=== PATIENT | male | born 1950 | race Caucasian/White ===

== ENCOUNTER 2020-03-02 10:48 | Emergency (ER) | payer OTHER, MEDICARE, SELFPAY ==
[2020-03-02 11:03] VITALS: BP 146/82; PULSE 87; TEMP 36.2; O2SAT 96; BMI 16.4
[2020-03-02 12:14] LABS: Add Urine Microscopic? NO
[2020-03-02 12:38] LABS: Glucose Urine UA Norm (Normal); Protein Urine Neg (Negative); Specific Gravity, Urine 1.015 (1.005-1.030); Urine Appearance Clear (CLEAR); Urine Color Dark Yellow (Yellow); pH Urine 7 (5-7)
[2020-03-02 12:39] LABS: Bilirubin Urine 1+ (Negative); Blood Urine Neg (Negative); Ketones Urine 3+ (Negative); Leukocyte Esterase Urine Negative (Negative); Nitrate Urine Negative (Negative); Urobilinogen Urine 4 mg/dL (Negative)
[2020-03-02 13:08] LABS: INR 0.85 (0.8-1.2)
[2020-03-02 13:10] LABS: Partial Thromboplastin Time 28.4 SECONDS (23.9-36.7)
[2020-03-02 13:16] LABS: Alanine Aminotransferase 16 U/L (0-41); Albumin Level 4.4 g/dL (3.5-5.2); Alkaline Phosphatase 53 IU/L (40-130); Anion Gap 16.3 (5-19); Aspartate Amino Transferase 26 U/L (0-40); Blood Urea Nitrogen 11 mg/dL (8-23); Calcium 9.5 mg/dL (8.5-10.5); Carbon Dioxide 27 mmol/L (22-29); Chloride 96 mmol/L (98-107); Globulin 3.1 g/dL (1.3-4.6); Glomerular Filtration Rate 299.1 mL/min (90-130); Glucose 96 mg/dL (65-115); Osmolality Calculated 276 mOsm/kg (285-295); Potassium 4.3 mmol/L (3.5-5.1); Sodium 135 mmol/L (136-145); Total Bilirubin 1.8 mg/dL (0.15-1.2); Total Protein 7.5 g/dL (6.6-8.7)
--- NOTE | 2020-03-02 14:16 | CT_ITS ---
WS: [id number] CT scan of the abdomen and pelvis with IV contrast. Additional two-dimensional coronal and sagittal reconstruction was performed. 03/02/2020 Clinical Data: abd pain Comparison: None. DLP: 165.[address] scans at [facility] use at least one of these dose optimization techniques: automat ed exposure control; mA and/or kV adjustment per patient size (includes targeted exams where dose is matched to clinical indication); or iterative reconstruction. Findings: The lower lungs show no nodules, masses or effusions. The liver, spleen and adrenal glands are normal. The gallbladder is absent with clips in the gallblad sasha site from a cholecystectomy. The pancreas is atrophic with no evidence of pancreatitis or pancrea tic mass. The kidneys show equal bilateral contrast excretion with no cyst or masses. The abdominal aorta is normal in size with minimal calcification in the wall.. No appendicitis or diverticulitis is seen. There is no dilatation of the small bowel, but there is fl uid in the small bowel lumen which can be seen with gastroenteritis. There are numerous sigmoid diver ticula. No abscess, adenopathy, ascites, mass, obstruction or free air is seen. The bladder is unrema rkable. The prostate is enlarged. No inguinal hernia is seen. The bones of the lower thorax, lumbar spine, pelvis, and hips show only moderate degenerative changes of the lumbar vertebral bodies. There are anterior upper abdominal midline surgical sutures. CT/CT abdomen pelvis w con* [id number] Impression: 1. Fluid in the small bowel without dilatation which can be seen with gastroent eritis. 2. Cholecystectomy. 3. Negative for acute pelvic abnormalities.
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
[2020-03-02 15:07] LABS: Basophils % 0.4 %; Eosinophils # 0.1 10^3/uL (0.0-0.8); Eosinophils % 0.9 %; Hematocrit 46.3 % (42.0-52.0); Hemoglobin 15.3 g/dL (11.7-16.6); Lymphocytes # 1.9 10^3/uL (0.8-4.8); Lymphocytes % 16.8 %; Mean Corpuscular Hemoglobin 33.3 pg (28.0-34.0); Mean Corpuscular Volume 100.7 fL (80-94); Mean Platelet Volume 11.2 fL (7.4-10.4); Monocytes # 1.2 10^3/uL (0.2-0.9); Monocytes % 10.5 %; Neutrophils # 8.12 10^3/uL (1.8-7.7); Neutrophils % 71.1 %; Nucleated Red Blood Cells % 0 %; Platelet Count 216 10^3/cmm (130-400); Red Cell Distribution Width 11.8 % (12.1-15.1); White Blood Count 11.4 10^3/uL (4.0-10.0)
[2020-03-02 15:56] VITALS: BP 138/76; PULSE 73; RESP 14; O2SAT 97
--- NOTE | 2020-03-02 16:14 | PC.NURSE ---
PT TO CT BY STRETCHER WITH TECH
[2020-03-02] MEDS: iohexol 300 mg/mL 100 mL Btl IV (16:21)
[2020-03-02 17:27] VITALS: BP 133/79; PULSE 85; RESP 20; TEMP 36.4; O2SAT 96
== END 2020-03-02 17:27 | disposition home or self-care (01) ==
PROVIDERS: Emergency Provider Family Medicine
DX: K92.1 Melena (principal)
CPT/HCPCS: 12345; 74177; 80053; 81003; 85025; 85610; 85730; 99282; 99283; Q9967

== ENCOUNTER 2023-01-30 16:13 | Inpatient (IN) | payer OTHER, SELFPAY ==
--- NOTE | 2023-01-30 16:15 | XRR_ITS ---
PROCEDURE INFORMATION: Exam: XR Right Hip Exam date and time: 01/30/2023 4:21 PM Age: 72 years old Clinical indication: Injury or trauma; Fall; Blunt trauma (contusions or hematomas); Right; Hip TECHNIQUE: Imaging protocol: Radiologic exam of the right hip. Views: 1 view hip with pelvis when performed. COMPARISON: CT abdomen pelvis w con* [id number] 03/02/2020 4:13 PM FINDINGS: Bones/joints: Right subcapital proximal femur fracture deformity. Soft tissues: Unremarkable. XR/XR hip RT 2-3V wo/w pel* [id number] IMPRESSION: Right subcapital proximal femur fracture deformity.
[2023-01-30 16:21] VITALS: BP 134/83; PULSE 105; RESP 20; O2SAT 94
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
--- NOTE | 2023-01-30 16:34 | XRR_ITS ---
PROCEDURE INFORMATION: Exam: XR Chest Exam date and time: 01/30/2023 4:47 PM Age: 72 years old Clinical indication: Injury or trauma; Fall TECHNIQUE: Imaging protocol: Radiologic exam of the chest. Views: 1 view. COMPARISON: CT abdomen pelvis w con* [id number] 03/02/2020 4:13 PM FINDINGS: Tubes, catheters and devices: Tracheostomy cannula noted, with distal tip 4 cm above the rahat. Lungs: The lungs are hyperinflated, consistent with COPD. No consolidative pulmonary infiltrates are noted. Pleural spaces: No pleural effusion. No pneumothorax. Heart/Mediastinum: No cardiomegaly. Bones/joints: Old healed left 3rd and 4th rib fractures. No acute osseous abnormality noted. XR/XR chest 1V portable [id number] IMPRESSION: 1. The lungs are hyperinflated, consistent with COPD. 2. No acute abnormality demonstrated.
--- NOTE | 2023-01-30 16:35 | ECG_ITS ---
[facility] Test Date: 2023-01-30 Pat Name: Richy Townsend Department: Room: Gender: Male Screening Representative: : 1950 Requested By: Марина Baltazar Order Number: [id number] Skyla MD: Arnaldo Arrieta M.D. Measurements Intervals [place] Rate: 95 P: 80 MI: 158 QRS: 62 QRSD: 84 T: 76 QT: 328 QTc: 413 Interpretive Statements SINUS RHYTHM EARLY REPOLARIZATION [ST ELEVATION WITH NORMALLY INFLECTED T-WAVE] TALL T-WAVES, SUGGESTS HYPERKALEMIA No previous ECG available for comparison Electronically Signed On 01-31-2023 9:26:18 CDT by Arnaldo Arrieta M.D. [id number]
--- NOTE | 2023-01-30 16:41 | CTR_ITS ---
PROCEDURE INFORMATION: Exam: CT Right Lower Extremity Without Contrast, Hip Exam date and time: 01/30/2023 5:17 PM Age: 72 years old Clinical indication: Injury or trauma; Fall; Blunt trauma; Hip; Right TECHNIQUE: Imaging protocol: CT of the right lower extremity without contrast was performed. Exam focused on the hip. Radiation optimization: All CT scans at this facility use at least one of these dose optimization techniques: automated exposure control; mA and/or kV adjustment per patient size (includes targeted exams where dose is matched to clinical indication); or iterative reconstruction. REPORTING DATA: Count of CT and Cardiac NM exams in prior 12 months: This patient has received 0 known CTs and 0 known cardiac nuclear medicine studies in the 12 months prior to the current study. COMPARISON: CR XR hip RT 2-3V wo/w pel* [id number] 01/30/2023 4:21 PM RADIATION DOSE METRICS: Total DLP (mGy-cm): 320.27 FINDINGS: Bones/joints: Acute mildly impacted subcapital fracture of the proximal right femur. The hip joint is minimally narrowed. No dislocation of the hip joint. The acetabulum is intact. Soft tissues: The musculature appears unremarkable. The soft tissues are unremarkable as demonstrated. CT/CT hip RT wo con* [id number] IMPRESSION: Acute mildly impacted subcapital fracture of the proximal right femur.
[2023-01-30 17:09] LABS: Basophils # 0.1 10^3/uL (0.0-0.1); Basophils % 0.4 %; Eosinophils % 0.2 %; Hematocrit 44.4 % (42.0-52.0); Hemoglobin 15.1 g/dL (11.7-16.6); Lymphocytes # 0.7 10^3/uL (0.8-4.8); Lymphocytes % 4.2 %; Mean Corpuscular Hemoglobin 33.3 pg (28.0-34.0); Mean Platelet Volume 10.5 fL (7.4-10.4); Monocytes % 6.4 %; Neutrophils # 13.79 10^3/uL (1.8-7.7); Neutrophils % 88.2 %; Nucleated Red Blood Cells % 0 %; Platelet Count 157 10^3/cmm (130-400); Red Blood Count 4.53 10^6/uL (4.1-5.3); White Blood Count 15.6 10^3/uL (4.0-10.0)
[2023-01-30 17:25] LABS: INR 0.94 (0.8-1.2)
[2023-01-30 17:46] VITALS: BP 118/77; PULSE 103; O2SAT 95
[2023-01-30 17:52] LABS: Alanine Aminotransferase 21 U/L (0-41); Alkaline Phosphatase 50 U/L (40-130); Aspartate Amino Transferase 29 U/L (0-40); Blood Urea Nitrogen 11 mg/dL (8-23); Calcium 9.8 mg/dL (8.5-10.5); Carbon Dioxide 22 mmol/L (22-29); Chloride 98 mmol/L (98-107); Globulin 2.9 g/dL (1.3-4.6); Glomerular Filtration Rate 296.4 mL/min (90-130); Glucose 107 mg/dL (65-115); Osmolality Calculated 278 mOsm/kg (285-295); Sodium 134 mmol/L (136-145); Total Bilirubin 1.9 mg/dL (0.15-1.2); Total Protein 6.9 g/dL (6.6-8.7)
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
--- NOTE | 2023-01-30 18:17 | XRR_ITS ---
PROCEDURE INFORMATION: Exam: XR Right Elbow Exam date and time: 01/30/2023 6:31 PM Age: 72 years old Clinical indication: Injury or trauma; Fall TECHNIQUE: Imaging protocol: Radiologic exam of the right elbow. Views: 1 or 2 views. COMPARISON: No relevant prior studies available. FINDINGS: Bones/joints: No acute fracture or other acute osseous abnormality. No significant joint narrowing. No joint dislocation. No joint effusion noted. Soft tissues: The soft tissues are unremarkable as demonstrated. XR/XR elbow RT 2V [id number] IMPRESSION: No acute fracture demonstrated.
--- NOTE | 2023-01-30 18:22 | USCV_ITS ---
Richy Townsend Age: 72 Gender: M : 1950 Exam Date: 01/30/2023 21:33 Ordering Phys: Tommy Cantu MD Technologist: AUTUMN Exam Location: [facility] [place] Indication: pre-op clearance for RT hip fracture. No history of cardiac intervention per patient. BP: 118 / 77 HR: 97 Rhythm: Sinus Technical Quality: Adequate MEASUREMENTS (Male / Female) Normal Values 2D ECHO LV Diastolic Diameter PLAX 3.1 cm 4.2 - 5.9 / 3.9 - 5.3 cm LV Systolic Diameter PLAX 2.1 cm IVS Diastolic Thickness 1.0 cm 0.6 - 1.0 / 0.6 - 0.9 cm IVS Systolic Thickness 1.8 cm LVPW Diastolic Thickness 1.3 cm 0.6 - 1.0 / 0.6 - 0.9 cm LVPW Systolic Thickness 1.3 cm LVOT Diameter 1.9 cm LV Ejection Fraction 2D Teich 60.2 % LV Ejection Fraction MOD 2C 63.4 % LV Ejection Fraction 2C AL 62.9 % LA Diameter 2.5 cm LA Width 3.4 cm LA Height 3.5 cm RA Width 3.3 cm RA Height 2.7 cm Aorta at Sinotubular Diameter 2.9 cm IVC Diameter 0.9 cm M-MODE Aortic Annulus Diameter 3.0 cm LA Ao Ratio MM 0.8 MV E Point Septal Separation 0.4 cm DOPPLER AV Peak Velocity 174.3 cm/s LVOT Peak Velocity 71.0 cm/s AV Area Cont Eq vti 0.9 cm squared AV Area Cont Eq pk 1.2 cm squared MV Area PHT 5.4 cm squared Mitral E to A Ratio 0.9 MV E' Velocity 23.0 cm/s Mitral E to MV E' Ratio 4.7 Mitral E to LV E' Lateral Ratio 4.7 Mitral E to LV E' Septal Ratio 4.8 TR Peak Velocity 265.3 cm/s TR Peak Gradient 28.2 mmHg TV Peak E Velocity 43.0 cm/s Right Atrial Pressure 5.0 mmHg Pulmonary Artery Systolic Pressu 33.2 mmHg PV Peak Velocity 90.0 cm/s RV Acceleration Time 0.1 s RV Ejection Time 0.3 s RV AcT/ET 0.4 FINDINGS Left Ventricle Left ventricle is normal in size. LV systolic function is normal with EF of 60 to 65%. No regional wall motion abnormalities are seen. Right Ventricle Normal in size and function Right Atrium Normal in size Left Atrium Normal in size Mitral Valve Grossly normal Aortic Valve Not well visualized. No significant aortic stenosis noted. Tricuspid Valve Mild tricuspid regurgitation. Pulmonary artery systolic pressure is normal. Pulmonic Valve Not well visualized Pericardium Normal Aorta Normal in size IVC Appears to be normal CONCLUSIONS Technically limited quality echocardiogram because of poor ultrasonic windows. LV systolic function is normal with EF of 60 to 65%. Mild tricuspid regurgitation No comparison studies are available Arnaldo Arrieta MD (Electronically Signed) Final Date: 31 January 2023 13:09 S
[2023-01-30 18:31] LABS: Troponin(5th) Baseline 23 ng/L (0-15)
[2023-01-30 18:38] LABS: NT Pro B Type Natriuretic Pept 265 pg/mL (0-125); Procalcitonin 0.18 ng/mL (0-0.5)
[2023-01-30 18:49] LABS: C Reactive Protein 24.8 mg/L (0.0-4.9); Gamma Glutamyl Transferase 16 U/L (8-61); Lipase 14 U/L (13-60)
[2023-01-30 18:58] LABS: Creatine Phosphokinase 58 U/L (39-308)
--- NOTE | 2023-01-30 19:53 | ECG_ITS ---
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 Measurements Intervals [place] Rate: 101 P: 76 MN: 166 QRS: 70 QRSD: 89 T: 81 QT: 324 QTc: 421 Interpretive Statements SINUS TACHYCARDIA TALL T-WAVES, SUGGESTS HYPERKALEMIA Compared to ECG 01/30/2023 16:42:50 Sinus rhythm no longer present Early repolarization no longer present Electronically Signed On 01-31-2023 9:29:35 CDT by Arnaldo Arrieta M.D. [id number]
[2023-01-30 20:04] LABS: Troponin 5 2HR 23.87 ng/L (0-15)
[2023-01-30 20:05] LABS: Troponin 5 2HR Delta 0.87 ABS# (0-10)
[2023-01-30 20:44] VITALS: BP 107/73; PULSE 96; RESP 16; TEMP 36.4; O2SAT 94
[2023-01-30 20:52] VITALS: O2SAT 96
[2023-01-30] MEDS: pantoprazole 40 mg SDV IVP (21:44)
[2023-01-30] MEDS: enoxaparin 40 mg/0.4 mL Syringe SUBCUT (21:44)
[2023-01-30] MEDS: sodium chloride 0.9% 1,000 ML 75 ML IV (21:45)
[2023-01-30 22:03] VITALS: RESP 16
[2023-01-30] MEDS: morphine 4 mg/mL SDV 1 mL 2 MG IVP (22:03)
--- NOTE | 2023-01-30 22:46 | ECG_ITS ---
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 Measurements Intervals [place] Rate: 99 P: 84 MT: 155 QRS: 62 QRSD: 87 T: 79 QT: 322 QTc: 415 Interpretive Statements SINUS RHYTHM Compared to ECG 01/30/2023 19:50:17 Sinus tachycardia no longer present Electronically Signed On 01-31-2023 9:29:05 CDT by Arnaldo Arrieta M.D. [id number]
[2023-01-30 22:59] LABS: Estmated Average Glucose 74; Hemoglobin A1C 4.2 % (4.0-6.0)
[2023-01-30 23:00] LABS: Troponin 5 6HR 26.24 ng/L (0-15)
[2023-01-30 23:02] LABS: Troponin 5 6HR Delta 3.24 ng/L (0-12)
[2023-01-30 23:08] LABS: Chol HDL Ratio 1.24 mg/dL (1.0-5.00); Cholesterol 153 mg/dL (0-200); HDL Cholesterol 123 mg/dL (60-100); LDL Cholesterol Calculated 25 mg/dL (50-129); Triglycerides 25 mg/dL (0-150)
[2023-01-30 23:10] LABS: Alcohol Level < 10 mg/dL (0-10)
[2023-01-30 23:57] VITALS: PULSE 99
[2023-01-31] VITALS (20 sets, daily range): BP systolic 92–147; BP diastolic 58–81; PULSE 82–106; RESP 16–18; TEMP 36.1–37.3; O2SAT 92–100
[2023-01-31 00:43] LABS: Add Urine Culture? No; Add Urine Microscopic? YES; Bacteria Urine 2+ /hpf; Bilirubin Urine Neg (Negative); Blood Urine Neg (Negative); Glucose Urine UA Norm (Normal); Ketones Urine 3+ (Negative); Leukocyte Esterase Urine Negative (Negative); Nitrate Urine Negative (Negative); Protein Urine Neg (Negative); Specific Gravity, Urine 1.015 (1.005-1.030); Sulfosalicylic Acid Urine Negative (Negative); Urine Appearance Hazy (CLEAR); Urine Color Dark Yellow (Yellow); Urobilinogen Urine Neg (Negative); WBC Urine 0-4 /hpf (0-5); pH Urine 9 (5-7)
[2023-01-31 00:44] LABS: Amphetamines Screen Urine Negative (Negative); Barbiturates Screen Urine Negative (Negative); Benzodiazepines Screen Urine Negative (Negative); Cocaine Screen Urine Negative (Negative); Opiate Screen Urine Negative (Negative); PCP Screen Urine Negative (Negative); THC Screen Urine Positive (Negative)
[2023-01-31 00:48] LABS: Vitamin B12 624 pg/mL (232-1245)
[2023-01-31 01:29] LABS: Folate Level 14.9 ng/mL (4.5-32.2)
[2023-01-31] MEDS: morphine 4 mg/mL SDV 1 mL 2 MG IVP ×2 (02:17→06:20)
--- NOTE | 2023-01-31 02:57 | ECG_ITS ---
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 Measurements Intervals [place] Rate: 93 P: 87 TX: 164 QRS: 64 QRSD: 88 T: 79 QT: 332 QTc: 414 Interpretive Statements SINUS RHYTHM WITH OCCASIONAL VENTRICULAR PREMATURE COMPLEXES Compared to ECG 01/30/2023 22:46:30 Ventricular premature complex(es) now present Electronically Signed On 01-31-2023 9:24:19 CDT by Arnaldo Arrieta M.D. [id number]
[2023-01-31 05:22] LABS: Basophils # 0.1 10^3/uL (0.0-0.1); Basophils % 0.5 %; Eosinophils # 0.3 10^3/uL (0.0-0.8); Hematocrit 39.4 % (42.0-52.0); Hemoglobin 13.5 g/dL (11.7-16.6); Lymphocytes # 1.1 10^3/uL (0.8-4.8); Lymphocytes % 8.5 %; Mean Corpuscular HGB Conc 34.3 g/dL (30.0-36.0); Mean Corpuscular Hemoglobin 32.6 pg (28.0-34.0); Mean Corpuscular Volume 95.2 fl (80-94); Monocytes # 0.7 10^3/uL (0.2-0.9); Monocytes % 5.5 %; Neutrophils # 10.59 10^3/uL (1.8-7.7); Neutrophils % 83.2 %; Nucleated Red Blood Cells % 0 %; Platelet Count 156 10^3/cmm (130-400); Red Blood Count 4.14 10^6/uL (4.1-5.3); White Blood Count 12.7 10^3/uL (4.0-10.0)
[2023-01-31 05:56] LABS: Alanine Aminotransferase 19 U/L (0-41); Albumin Level 3.5 g/dL (3.5-5.2); Alkaline Phosphatase 53 U/L (40-130); Aspartate Amino Transferase 29 U/L (0-40); Blood Urea Nitrogen 11 mg/dL (8-23); Calcium 8.7 mg/dL (8.5-10.5); Carbon Dioxide 22 mmol/L (22-29); Chloride 103 mmol/L (98-107); Globulin 2.8 g/dL (1.3-4.6); Glomerular Filtration Rate 296.4 mL/min (90-130); Glucose 128 mg/dL (65-115); Magnesium 1.7 mg/dL (1.7-2.3); Osmolality Calculated 289 mOsm/kg (285-295); Phosphorus 2.8 mg/dL (2.5-4.5); Sodium 139 mmol/L (136-145); Total Bilirubin 1.9 mg/dL (0.15-1.2); Total Protein 6.3 g/dL (6.6-8.7)
--- NOTE | 2023-01-31 08:05 | PC.PHAR ---
[facility]10[facility]
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
--- NOTE | 2023-01-31 08:10 | USR_ITS ---
PROCEDURE INFORMATION: Exam: US Duplex Bilateral Extracranial Arteries; Complete; Carotid Arteries Exam date and time: 01/31/2023 5:38 PM Age: 72 years old Clinical indication: Dizziness and syncope and collapse; Additional info: Fall TECHNIQUE: Imaging protocol: Real-time duplex ultrasound scan of the bilateral extracranial arteries combining paz scale, color Doppler and spectral waveform analysis with image documentation. Complete exam. Exam focused on the carotid arteries. COMPARISON: CT head wo con* [id number] 01/31/2023 8:34 AM FINDINGS: Right common carotid artery: No occlusion or stenosis. Waveforms are normal. Small shadowing plaque in the carotid bulb. Right internal carotid artery: Scattered mixed echogenicity plaque proximal internal carotid artery.. No occlusion or stenosis. Waveforms are normal. Right ICA/CCA ratio: Within normal limits. 0.88. Right external carotid artery: No stenosis in the origin. Right vertebral artery: Unremarkable. Antegrade flow. Left common carotid artery: No significant plaque. No occlusion or stenosis. Waveforms are normal. Left internal carotid artery: No significant plaque. No occlusion or stenosis. Waveforms are normal. Left ICA/CCA ratio: Within normal limits. 0.95 Left external carotid artery: No stenosis in the origin. Left vertebral artery: Unremarkable. Antegrade flow. US/CV carotid duplex BI* [id number] IMPRESSION: No carotid arterial stenosis. REFERENCES: SRU CRITERIA. The degree of internal carotid artery stenosis is based on criteria defined by the Society of Radiologists in Ultrasound (SRU). Normal is no stenosis. Mild is less than 50% stenosis. Moderate is 50-69% stenosis. Severe is greater than 69% stenosis to near occlusion. Near occlusion is a markedly narrowed lumen. Total occlusion is no detectable patent lumen.
[2023-01-31 08:45] LABS: Free T4 Free Thyroxine 1.52 ng/dL (0.82-1.77); T3 Free 3.2 PG/ML (2.0-4.4)
[2023-01-31] MEDS: thiamine 100 mg Tablet PO (08:48)
[2023-01-31] MEDS: folic acid 1 mg Tablet PO (08:48)
[2023-01-31] MEDS: multivitamin therapeutic Tablet 1 TAB PO (08:48)
--- NOTE | 2023-01-31 09:28 | PC.SLP ---
Patient is currently NPO for possible surgery per Dr. Cantu. SOCIAL STUDIES DEPARTMENT CHAIR to complete evaluation tomorrow if possible.
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
[2023-01-31] MEDS: fentaNYL 50 mcg/mL INJ 2mL IVP (11:01)
[2023-01-31] MEDS: sodium chloride 0.9% 1,000 ML 30 ML IV (11:02)
[2023-01-31] MEDS: ceFAZolin 2,000 MG in sodium chloride 0.9% (plus) 50 ML 100 MG IV ×2 (11:54→19:43)
--- NOTE | 2023-01-31 12:05 | SUR.OPER ---
1205 Dr. Mcwilliams removed 6mm Bert trach and replaced with a 6mm Rosa Mley cuffed trach for procedure.
[2023-01-31] MEDS: ceFAZolin 1,000 mg SDV 1000 MG IRRIGATION (13:07)
[2023-01-31] MEDS: BUPivacaine 0.5% INJ 30 mL INJECTION (13:07)
[2023-01-31] MEDS: tranexamic acid 1,000 mg/10mL SDV 1000 MG XX (13:22)
--- NOTE | 2023-01-31 14:22 | ANE.PACU2 ---
Inpatient post-anesthesia follow up: Airway intact: Yes (cuffed trach placed introp still in place ) Vital signs: Temperature 97 F Pulse Rate 100 Respiratory Rate 16 Blood Pressure 147/73 Pulse Oximetry 97 Oxygen Delivery Me thod Room Air Oxygen Flow Rate 6 Fraction of Inspir ed Oxygen 21 Hydration adequate: Yes Nausea and vomiting: No Pain level: 1 Mental status: Baseline
--- NOTE | 2023-01-31 14:25 | ANE.PACU2 ---
Inpatient post-anesthesia follow up: Airway intact: Yes Vital signs: Temperature 97.7 F Pulse Rate 79 Respiratory Rate 16 Blood Pressure 106/63 Pulse Oximetry 93 Oxygen Delivery Me thod Room Air Oxygen Flow Rate 6 Fraction of Inspir ed Oxygen 21 Hydration adequate: Yes Nausea and vomiting: No Pain level: 1 Mental status: Baseline
--- NOTE | 2023-01-31 14:36 | XR_ITS ---
WS: [id number] PELVIS: AP VIEW SUBMITTED HISTORY: Status post bipolar hip arthroplasty COMPARISON: 01/30/2023 Interval right hip arthroplasty. On this single AP projection arthroplasty appears normally positione d. Bones are osteopenic. IMPRESSION: Satisfactory right hip arthroplasty on this single image submitted.
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
[2023-01-31] MEDS: acetaminophen 1,000 MG/100 ML PIGGYBACK 400 MG IV ×2 (15:46→22:59)
[2023-01-31] MEDS: sennosides-docusate Tablet 2 TAB PO (17:30)
[2023-01-31] MEDS: chlorhexidine gluconate 0.12% Btl 473 mL 30 ML MUCOUS MEM ×2 (17:30→20:59)
[2023-01-31] MEDS: mupirocin oint 22 gm 1 APPLIC NASAL (17:30)
[2023-01-31] MEDS: calcium carbonate 500 mg Chew Tablet 1000 MG PO (17:30)
[2023-01-31] MEDS: iron polysaccharide complex 150 mg Capsule PO (17:31)
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
[2023-01-31] MEDS: pantoprazole 40 mg SDV IVP (20:58)
[2023-01-31] MEDS: enoxaparin 40 mg/0.4 mL Syringe SUBCUT (20:58)
[2023-01-31] MEDS: sodium chloride 0.9% 1,000 ML 75 ML IV (23:02)
[2023-02-01] VITALS (15 sets, daily range): BP systolic 95–132; BP diastolic 51–70; PULSE 70–88; RESP 16–20; TEMP 36.4–37.1; O2SAT 93–98
[2023-02-01] MEDS: ceFAZolin 2,000 MG in sodium chloride 0.9% (plus) 50 ML 100 MG IV ×2 (02:27→10:49)
[2023-02-01 05:54] LABS: Basophils % 0.3 %; Eosinophils # 0.3 10^3/uL (0.0-0.8); Eosinophils % 2.8 %; Hematocrit 33.4 % (42.0-52.0); Hemoglobin 10.9 g/dL (11.7-16.6); Lymphocytes # 1.5 10^3/uL (0.8-4.8); Lymphocytes % 13.9 %; Mean Corpuscular HGB Conc 32.6 g/dL (30.0-36.0); Mean Corpuscular Hemoglobin 32.9 pg (28.0-34.0); Mean Corpuscular Volume 100.9 fl (80-94); Mean Platelet Volume 11.4 fL (7.4-10.4); Monocytes % 9.4 %; Neutrophils # 7.82 10^3/uL (1.8-7.7); Neutrophils % 73.2 %; Nucleated Red Blood Cells % 0 %; Platelet Count 145 10^3/cmm (130-400); Red Blood Count 3.31 10^6/uL (4.1-5.3); White Blood Count 10.7 10^3/uL (4.0-10.0)
[2023-02-01 06:16] LABS: Alanine Aminotransferase 11 U/L (0-41); Albumin Level 2.9 g/dL (3.5-5.2); Alkaline Phosphatase 38 U/L (40-130); Anion Gap 13.5 (5-19); Aspartate Amino Transferase 18 U/L (0-40); Blood Urea Nitrogen 11 mg/dL (8-23); Calcium 8.2 mg/dL (8.5-10.5); Carbon Dioxide 21 mmol/L (22-29); Chloride 106 mmol/L (98-107); Globulin 1.9 g/dL (1.3-4.6); Glomerular Filtration Rate 212.7 mL/min (90-130); Glucose 83 mg/dL (65-115); Osmolality Calculated 283 mOsm/kg (285-295); Phosphorus 2.8 mg/dL (2.5-4.5); Potassium 3.5 mmol/L (3.5-5.1); Sodium 137 mmol/L (136-145); Total Bilirubin 0.8 mg/dL (0.15-1.2); Total Protein 4.8 g/dL (6.6-8.7)
[2023-02-01] MEDS: acetaminophen 1,000 MG/100 ML PIGGYBACK 400 MG IV (06:26)
[2023-02-01] MEDS: folic acid 1 mg Tablet PO (08:13)
[2023-02-01] MEDS: oxyCODONE 5 mg IR Tab/Cap PO ×3 (08:13→20:15)
[2023-02-01] MEDS: iron polysaccharide complex 150 mg Capsule PO ×2 (08:14→17:24)
[2023-02-01] MEDS: multivitamin therapeutic Tablet 1 TAB PO (08:14)
[2023-02-01] MEDS: calcium carbonate 500 mg Chew Tablet 1000 MG PO ×2 (08:14→17:25)
[2023-02-01] MEDS: thiamine 100 mg Tablet PO (08:14)
[2023-02-01] MEDS: sennosides-docusate Tablet 2 TAB PO ×2 (08:14→17:24)
[2023-02-01] MEDS: aspirin 325 mg EC Tablet PO (08:14)
[2023-02-01] MEDS: cholecalciferol (vitamin D3) 1,000 unit Tablet 1000 UNIT PO (08:14)
[2023-02-01] MEDS: chlorhexidine gluconate 0.12% Btl 473 mL 30 ML MUCOUS MEM ×4 (08:15→20:06)
[2023-02-01] MEDS: mupirocin oint 22 gm 1 APPLIC NASAL ×2 (08:20→17:25)
[2023-02-01] MEDS: morphine 4 mg/mL SDV 1 mL 2 MG IVP (10:48)
[2023-02-01] MEDS: sodium chloride 0.9% 1,000 ML 75 ML IV (14:17)
[2023-02-01] MEDS: acetaminophen 500 mg Tablet 1000 MG PO (14:17)
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
[2023-02-01] MEDS: enoxaparin 40 mg/0.4 mL Syringe SUBCUT (20:06)
[2023-02-01] MEDS: pantoprazole 40 mg SDV IVP (20:06)
[2023-02-02] VITALS (7 sets, daily range): BP systolic 113–122; BP diastolic 42–71; PULSE 74–90; RESP 16–18; TEMP 36.4–36.6; O2SAT 95–97
[2023-02-02] MEDS: acetaminophen 500 mg Tablet 1000 MG PO ×2 (00:12→06:38)
[2023-02-02 05:47] LABS: Basophils # 0.1 10^3/uL (0.0-0.1); Basophils % 0.6 %; Eosinophils # 0.7 10^3/uL (0.0-0.8); Eosinophils % 6.5 %; Hematocrit 35.2 % (42.0-52.0); Hemoglobin 11.6 g/dL (11.7-16.6); Lymphocytes # 1.5 10^3/uL (0.8-4.8); Lymphocytes % 14.1 %; Mean Corpuscular Hemoglobin 33.1 pg (28.0-34.0); Mean Corpuscular Volume 100.6 fl (80-94); Mean Platelet Volume 11.4 fL (7.4-10.4); Monocytes # 1.2 10^3/uL (0.2-0.9); Monocytes % 11.1 %; Neutrophils # 7.32 10^3/uL (1.8-7.7); Neutrophils % 67.3 %; Nucleated Red Blood Cells % 0 %; Platelet Count 153 10^3/cmm (130-400); Red Cell Distribution Width 12.6 % (12.1-15.1); White Blood Count 10.9 10^3/uL (4.0-10.0)
[2023-02-02 06:12] LABS: Alanine Aminotransferase 10 U/L (0-41); Albumin Level 2.8 g/dL (3.5-5.2); Alkaline Phosphatase 59 U/L (40-130); Anion Gap 17.4 (5-19); Aspartate Amino Transferase 22 U/L (0-40); Blood Urea Nitrogen 9 mg/dL (8-23); Carbon Dioxide 22 mmol/L (22-29); Chloride 101 mmol/L (98-107); Globulin 2.6 g/dL (1.3-4.6); Glomerular Filtration Rate 212.7 mL/min (90-130); Glucose 73 mg/dL (65-115); Osmolality Calculated 281 mOsm/kg (285-295); Phosphorus 2.8 mg/dL (2.5-4.5); Potassium 3.4 mmol/L (3.5-5.1); Sodium 137 mmol/L (136-145); Total Bilirubin 0.7 mg/dL (0.15-1.2); Total Protein 5.4 g/dL (6.6-8.7)
[2023-02-02] MEDS: calcium carbonate 500 mg Chew Tablet 1000 MG PO (07:45)
[2023-02-02] MEDS: multivitamin therapeutic Tablet 1 TAB PO (07:45)
[2023-02-02] MEDS: oxyCODONE 5 mg IR Tab/Cap PO ×2 (07:45→12:51)
[2023-02-02] MEDS: thiamine 100 mg Tablet PO (07:46)
[2023-02-02] MEDS: aspirin 325 mg EC Tablet PO (07:46)
[2023-02-02] MEDS: iron polysaccharide complex 150 mg Capsule PO (07:46)
[2023-02-02] MEDS: sennosides-docusate Tablet 2 TAB PO (07:46)
[2023-02-02] MEDS: folic acid 1 mg Tablet PO (07:47)
[2023-02-02] MEDS: cholecalciferol (vitamin D3) 1,000 unit Tablet 1000 UNIT PO (07:47)
[2023-02-02] MEDS: mupirocin oint 22 gm 1 APPLIC NASAL (07:47)
[2023-02-02] MEDS: chlorhexidine gluconate 0.12% Btl 473 mL 30 ML MUCOUS MEM (07:48)
[2023-02-02] MEDS: potassium chloride ER 20 mEq Tablet 40 MEQ PO (09:29)
[2023-02-02] MEDS: amoxicillin-clav 875-125 mg Tablet 1 TAB PO (09:29)
--- NOTE | 2023-02-02 10:51 | PC.OT ---
OT treatment attempted this AM. Patient stating he is discharging home today. He had just returned to bed after completing PT prior to therapist arrival. Patient pleasantly declined OT treatment at this time. He reported no concerns with return home and ability to complete daily tasks. Will attempt tx later if able and patient is still admitted. Ash Marie, OTR/L
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
[2023-02-07 13:23] LABS: Vitamin B1(Thiamin) Plas/Ser >1200 nmol/L (8-30)
== END 2023-02-02 13:30 | disposition home health service (06) | DRG 521 ==
LOC: ER 16:51 → MEDSURG 19:07
PROVIDERS: Specialist; Admitting Provider Family Medicine; Emergency Provider Emergency Medicine; Visit Provider Family Medicine
PROC: 0SRR0JZ Replacement of Right Hip Joint, Femoral Surface with Synthetic Substitute, Open Approach (ICD-10-PCS; CPT 27125; principal; 2023-01-31 11:20)
DX: S72.011A Unspecified intracapsular fracture of right femur, initial encounter for closed fracture (principal); E43 Unspecified severe protein-calorie malnutrition; Z68.1 Body mass index [BMI] 19.9 or less, adult; W18.30XA Fall on same level, unspecified, initial encounter; Z93.0 Tracheostomy status; R13.10 Dysphagia, unspecified; Z87.891 Personal history of nicotine dependence; J44.9 Chronic obstructive pulmonary disease, unspecified; F10.10 Alcohol abuse, uncomplicated; Z79.51 Long term (current) use of inhaled steroids; F12.90 Cannabis use, unspecified, uncomplicated; M25.521 Pain in right elbow; R94.31 Abnormal electrocardiogram [ECG] [EKG]; E80.6 Other disorders of bilirubin metabolism
CPT/HCPCS: 36415; 51702; 70450; 71045; 72170; 73070; 73502; 73700; 80053; 80061; 80306; 80307; 81001; 82550; 82607; 82746; 82977; 83036; 83690; 83735; 83880; 84100; 84145; 84425; 84439; 84443; 84481; 84484; 85025; 85610; 86140; 87040; 87070; 87077; 87186; 87205; 87641; 92610; 93005; 93306; 93880; 94664; 96372; 97110; 97116; 97161; 97165; 99285; C1776; C9113; J0131; J0171; J0690; J1650; J2250; J2270; J2371; J2704; J2710; J3010; J3411; J3490; J7030

== ENCOUNTER → 2023-03-05 09:18 | Outpatient (BNVA) | payer OTHER, SELFPAY | PROVIDERS: Visit Provider Specialist | DX: S72.011D Unspecified intracapsular fracture of right femur, subsequent encounter for closed fracture with routine healing; X58.XXXD Exposure to other specified factors, subsequent encounter | CPT/HCPCS: 73502; 99024 ==

== ENCOUNTER → 2023-03-07 08:12 | Outpatient (BNVA) | payer OTHER, SELFPAY | PROVIDERS: Visit Provider Internal Medicine Pulmonary Disease | DX: Z09 Encounter for follow-up examination after completed treatment for conditions other than malignant neoplasm (principal); J44.9 Chronic obstructive pulmonary disease, unspecified; Z93.0 Tracheostomy status; Z12.2 Encounter for screening for malignant neoplasm of respiratory organs; Z87.891 Personal history of nicotine dependence | CPT/HCPCS: 99204 ==

== ENCOUNTER → 2023-06-30 14:46 | Outpatient (BNVA) | payer OTHER, SELFPAY | PROVIDERS: Visit Provider Specialist | DX: S72.011D Unspecified intracapsular fracture of right femur, subsequent encounter for closed fracture with routine healing; X58.XXXD Exposure to other specified factors, subsequent encounter | CPT/HCPCS: 73502; 99213 ==

== ENCOUNTER → 2023-09-03 09:47 | Outpatient (BNVA) | payer OTHER, SELFPAY | PROVIDERS: Visit Provider Nurse Practitioner Family | DX: L72.0 Epidermal cyst (principal); L82.1 Other seborrheic keratosis; L81.4 Other melanin hyperpigmentation; L57.8 Other skin changes due to chronic exposure to nonionizing radiation; L98.8 Other specified disorders of the skin and subcutaneous tissue; L90.5 Scar conditions and fibrosis of skin; Z85.828 Personal history of other malignant neoplasm of skin | CPT/HCPCS: 99203 ==

== ENCOUNTER → 2023-09-25 08:42 | Outpatient (BNVA) | payer OTHER, SELFPAY | PROVIDERS: Visit Provider Dermatology | DX: D48.5 Neoplasm of uncertain behavior of skin (principal) | CPT/HCPCS: 11403; 12032 ==

== ENCOUNTER → 2023-10-06 11:16 | Outpatient (BNVA) | payer OTHER, SELFPAY | PROVIDERS: Visit Provider Dermatology | DX: Z48.02 Encounter for removal of sutures (principal) | CPT/HCPCS: 99212; 99398 ==